=== PATIENT | female | born 1990 | race Caucasian/White ===

== ENCOUNTER → 2021-03-23 | Outpatient (CLI) | payer BC, MEDICAID ==
[~2021-03-23] MED LIST: ACHD5005 PO; CEPH500C PO; HYDR-707; Ibuprofen PO; MTR500T; NFR150C PO; PREN1TAB39 PO; VALA100033 PO
--- NOTE | 2021-03-23 12:28 | Diagnostic Imaging Report ---
INDICATION: Maternal tobacco use. TECHNIQUE: Multiple real-time grayscale images were obtained over the gravid uterus. COMPARISON: None FINDINGS: There is a single live fetus in cephalic presentation. heart rate was recorded at 155 bpm. Placenta is anterior. And hindfoot index is 12.2 cm. A biophysical profile was performed with a normal score of 8 out of 8. Biometrical measurements are as follows: Biparietal 9.45 cm, age 38 weeks 4 days. Head circumference 32.65 cm, age 37 weeks 1 days. Abdominal circumference 34.59 cm, age 38 weeks 4 days. Femur length 7.42 cm, age 38 weeks 0 days. Sonographic estimate age: 38 weeks 1 days. Sonographic estimated date of delivery: 04/05/2021. Estimated Weight: 3427 gm (+/- 501 gm). LMP percentile: 83%. heart rate: 155 beats per minute. number: 1 of 1. IMPRESSION: Single live IUP approximately 38 weeks gestational age with estimated date of confinement sonographically of 04/05/2021. No complicating features are identified. Normal biophysical profile score of 8 out of 8. Dictated by: Dictated on workstation # [id number]
== END ==
LOC: RAD 10:00
PROVIDERS: ATTEND Obstetrics & Gynecology
DX: O99.333 Smoking (tobacco) complicating pregnancy, third trimester (principal); Z3A.38 38 weeks gestation of pregnancy
CPT/HCPCS: 76805; 76819

== ENCOUNTER 2021-03-30 07:11 | Inpatient (IN) | payer MEDICAID ==
[~2021-03-30] VITALS: Ht 162.6 cm; Wt 102.1 kg
[2021-03-30] VITALS (79 sets, daily range): BP systolic 85–146; BP diastolic 46–91
[2021-03-30] MEDS ORDERED: OXYTOCIN PRE-MIX DRIP 500 ML IV SCH (07:45)
[2021-03-30] MEDS ORDERED: MINERAL OIL CONCENTRATE 99.9% 15 ML UDC TOP PRN (07:45)
[2021-03-30] MEDS ORDERED: fentaNYL 2 mcg/ml BUPIVA 0.125 100 ML ONE (08:06)
[2021-03-30] MEDS ORDERED: LACTATED RINGERS 1,000 ML IV ONE ×2 (08:06→08:45)
[2021-03-30 08:09] LABS: BASOPHILS % (AUTO) 0 % (0-10); EOSINOPHILS % (AUTO) 0 % (0-10); HEMATOCRIT 36 % (35-52); HEMOGLOBIN 11.8 g/dL (11.5-16.0); LYMPHOCYTES # (AUTO) 1.7 10^3/uL (1.0-4.0); LYMPHOCYTES % (AUTO) 16 % (12-44); MEAN CORPUSCULAR HEMOGLOBIN 28 pg (25-34); MEAN CORPUSCULAR HGB CONC 33 g/dL (32-36); MEAN CORPUSCULAR VOLUME 84 fL (80-99); MEAN PLATELET VOLUME 12.8 fL (9.0-12.2); MONOCYTES # (AUTO) 0.7 10^3/uL (0.0-1.0); MONOCYTES % (AUTO) 6 % (0-12); NEUTROPHILS # (AUTO) 7.9 10^3/uL (1.8-7.8); NEUTROPHILS % (AUTO) 76 % (42-75); PLATELET COUNT 166 10^3/uL (130-400); WHITE BLOOD COUNT 10.4 10^3/uL (4.3-11.0)
[2021-03-30] MEDS: D5 LR IV SOLUTION 1,000 ML IV SCH ×2 (08:35→16:41)
[2021-03-30] MEDS ORDERED: fentaNYL INJ 100 MCG/2 ML AMP ONE (08:44)
[2021-03-30] MEDS ORDERED: BUPIVACAINE 0.25% 30 ML (SENSORCAINE) VIAL ONE (08:44)
[2021-03-30] MEDS ORDERED: CATHETER FLUSH 10 ML SYR IV PRN (08:45)
[2021-03-30] MEDS ORDERED: ONDANSETRON 4 MG/2 ML (SDV) Z0FRAN IV PRN (08:45)
[2021-03-30] MEDS ORDERED: diphenhydrAMINE 50 MG/ML INJ (BENADRYL) IV PRN (08:45)
[2021-03-30] MEDS ORDERED: NALOXONE 0.4 MG/ML 1 ML (NARCAN) VIAL IV PRN ×2 (08:45→21:30)
[2021-03-30] MEDS ORDERED: FERR-84 PO (08:45)
[2021-03-30] MEDS: fentaNYL 2 mcg/ml BUPIVA 0.125 100 ML IV SCH ×2 (09:07→16:41)
[2021-03-30] MEDS ORDERED: CATHETER FLUSH 10 ML SYR IV SCH ×2 (14:00→22:00)
--- NOTE | 2021-03-30 15:27 | History & Physical-OB ---
OB - Chief Complaint & HPI Date/Time Date of Admission: Date of Admission: Mar 30, 2021 at 07:11 Date seen by a Provider: Mar 30, 2021 Time Seen by a Provider: 08:30 Chief Complaint/History OB-Reason for Admission/Chief: Induction of Labor Hx : 3 Hx Para: 2 Expected Date of Delivery: Apr 12, 2021 Gestational Age in Weeks: 38 Gestational Age in Days: 1 Other reason for admission: 30 Year old at 38 + week gestation complicated by Anti-S antibody. Testing has been wnl but [facility] recommended delivery at 38 weeks due to risk of anemia. also history of smoking with testing. PRevious vaginal delivery and then CS. Plans TOLAC and has signed appropriate consent forms. Admission Nurse Assessment Rev: Yes Allergies and Home Medications Allergies Coded Allergies: No Known Drug Allergies (Unverified , 11/13/08) Patient Home Medication List Home Medication List Reviewed: No Acetaminophen (Acetaminophen) 500 Mg Tablet, 1,000 MG PO Q8HR Prescribed by: SHELBY DUNAWAY on 04/01/21939 Ferrous Sulfate (Ferosul) 325 Mg Tablet, 325 MG PO DAILY Prescribed by: SHELBY DUNAWAY on 04/01/21939 Ibuprofen (Ibu) 600 Mg Tablet, 600 MG PO Q6HR Prescribed by: SHELBY DUNAWAY on 04/01/21939 Discontinued Medications Ferrous Sulfate (Iron) 325 Mg Tablet, 325 MG PO UD, (Reported) Entered as Reported by: YAHAIRA PINA on 03/30/21844 Last Action: Discontinued Hydrocodone Bit/Acetaminophen (Lortab 5 Mg Tablet) 1 Tab Tab, 1-2 TAB PO Q4H PRN for PAIN Prescribed by: SHELBY DUNAWAY on 10/14/13844 Last Action: Discontinued Polysaccharide Iron Complex (Niferex) 150 Mg Cap, 150 MG PO BID WITH MEALS Prescribed by: SHELBY DUNAWAY on 10/14/13844 Last Action: Discontinued Vits W-Ca,Fe,Fa(<1MG) () 1 Each Tablet, 1 EACH PO DAILY, (Reported) Entered as Reported by: NAVJOT BRADY on 10/05/10 9894 Last Action: Discontinued Valacyclovir Hcl (Valtrex) 1,000 Mg Tablet, 1,000 MG PO DAILY, (Reported) Entered as Reported by: NAVJOT BRADY on 10/05/10 9479 Last Action: Discontinued [Ibuprofen] 600 MG TAB, 600 MG PO Q6H PRN for PAIN Discontinued Reason: No Longer Taking Prescribed by: SHELBY DUNAWAY on 10/14/13 8053 Last Action: Discontinued OB - History Hx of Present Ultrasounds: Normal mid trimester US Obstetrical Complications: Other (abnormal antibodies) Information Induced Hypertension: No Maternal Gestational Diabetes: No Hemorrhage: No Obstetrical History Hx : 3 Hx Para: 2 Hx # Term Pregnancies: 2 Hx # Pregnancies: 0 Number of Living Children: 2 Hx Termination: No Hx Multiple Gestation: No Hx Stillbirth: No Hx Complication: No Hx Induced Hypertens: No Hx Maternal Gestational Diabet: No Delivery History Hx Dystocia: No Hx Large For Gestational Age I: No Hx Small for Gestational Age I: No Hx Section: Yes Hx Vaginal Delivery Post C-Sec: No Hx Blood Disorders: No Adverse Rxn to Tranfusion: No Patient Past Medical History smoking Social History/Family History Alcohol Use: Denies Use Smoking Cessation: Current every day smoker Immunizations Influenza Vaccine Up-to-Date: Yes; Up-to-Date Hepatitis A: No Hepatitis B: No Tetanus Booster (TDap): Less than 5yrs Rubella: immune RPR/VDRL: Negative GBS Status: Negative HBsAG: Negative OB - Admission Exam Physical Exam Vitals: Vital Signs 03/30/21 03/30/21 09:06 14:30 Temp 36.3 Pulse 75 Resp 18 B/P (MAP) 98/55 (69) Pulse Ox 97 O2 Delivery Room Air HEENT: NCAT Heart: Rhythm Normal Lungs: Clear Abdomen: Gravid Extremities: Normal Reflexes: Normal Cervical Dilatation: 3cm Effacement: 50% Station: -2 Membranes: Intact Heart Rate: 140's Accelerations: Accelerations Present Decelerations: No Decelerations Short Term Variability: Present Beater Engineer Variability: Average (6-25) Contractions on Admission: 6-10 Minutes Apart Labs Laboratory Tests Test 03/30/21 07:55 Range/Units White Blood Count 10.4 4.3-11.0 10^3/uL Red Blood Count 4.26 3.80-5.11 10^6/uL Hemoglobin 11.8 11.5-16.0 g/dL Hematocrit 36 35-52 % Mean Corpuscular Volume 84 80-99 fL Mean Corpuscular Hemoglobin 28 25-34 pg Mean Corpuscular Hemoglobin Concent 33 32-36 g/dL Red Cell Distribution Width 14.7 H 10.0-14.5 % Platelet Count 166 130-400 10^3/uL Mean Platelet Volume 12.8 H 9.0-12.2 fL Immature Granulocyte % (Auto) 1 % Neutrophils (%) (Auto) 76 H 42-75 % Lymphocytes (%) (Auto) 16 12-44 % Monocytes (%) (Auto) 6 0-12 % Eosinophils (%) (Auto) 0 0-10 % Basophils (%) (Auto) 0 0-10 % Neutrophils # (Auto) 7.9 H 1.8-7.8 10^3/uL Lymphocytes # (Auto) 1.7 1.0-4.0 10^3/uL Monocytes # (Auto) 0.7 0.0-1.0 10^3/uL Eosinophils # (Auto) 0.0 0.0-0.3 10^3/uL Basophils # (Auto) 0.0 0.0-0.1 10^3/uL Immature Granulocyte # (Auto) 0.1 0.0-0.1 10^3/uL OB - Assessment/Plan/Diagnosis Assessment Assessment: induction of labor, other (history of CS for TOLAC) Admission Dx 38 week gestation abnormal antibodies previous section Admission Status: Inpatient Order (span 2 midnights) Reason for Inpatient Admission: labor Plan Induction Method: AROM Other Plan Plan TOLAC AROM and pitocin. epidural Anticipate SHELBY LEE DO Mar 30, 2021 15:27
[2021-03-30] MEDS ORDERED: LIDOCAINE/EPI 2% 1:200,00 (XYLOCAINE) 10 ML VIAL ONE (20:06)
[2021-03-30] MEDS ORDERED: LIDOCAINE/EPI 2% 1:200,00 (XYLOCAINE) 10 ML VIAL INJ ONE (20:15)
[2021-03-30] MEDS: OXYTOCIN PRE-MIX DRIP 500 ML IV SCH ×2 (21:10→21:33)
[2021-03-30] MEDS ORDERED: CARBOPROST (HEMABATE) 250 MCG/ML AMP IM ONE ×2 (21:14→21:30)
--- NOTE | 2021-03-30 21:27 | OB Labor & Delivery Record ---
Vag Delivery Note Vag Delivery Note Date of Delivery: 03/30/21 Preoperative Diagnosis: Rabia Garcia is a 30 /Para 3 /2 , Gestational Age38 4/7 weeks for induction due to abnormal antibodies, previous section Postoperative Diagnosis: Same Surgeon: SHELBY DUNAWAY Anesthesia: epidural Delivery Type: Findings: Viable female , apgars 9/9, weight 7#5ounces Lacerations: vaginal abrasions Intact placenta with 3 vessel cord. No nuchal cord, body cord or shoulder dystocia Hemabate 250 mch Estimated Blood Loss: 500 ml Complications: None Condition: Stable Description of Procedure: The patient is a 30 year old female who presented for induction of labor. She was admitted and informed consent was obtained. Her labor course was remarkable for epidural placement, AROM and oxytocin augmentation. She progressed to complete dilatation and began to push. She was then set up for delivery. The infant's head was delivered atraumatically in the LINDA position. The shoulders and remainder of the infant's body were then delivered without difficulty. Upon delivery, the head was held below the level of the perineum and the mouth and nares were bulb suctioned. The cord was doubly clamped and cut and the was handed off to the pediatric staff. After 30 minutes the placenta had not yet delivered, so it was delivered manually.She had extended bleeding. Vigorous fundal massage was performed and the fundus was found to be firm. IV oxytocin was given. Hemabate 250 mcg given x 1. Examination of the vagina and perineum revealed no laceration. Following the delivery, sponge, instrument and needle counts were correct. Mom and baby were both in stable condition in the labor suite. Vitals - Labs Vital Signs - I&O Vital Signs Date Time Temp Pulse Resp B/P (MAP) Pulse Ox O2 Delivery O2 Flow Rate FiO2 03/30/21 19:42 37.5 114 18 121/71 (88) 100 03/30/21 19:00 100 18 130/67 (88) 100 Room Air 03/30/21 18:50 111 18 130/70 (90) 100 Room Air 03/30/21 18:45 102 18 100 Room Air 03/30/21 18:40 103 18 100 Room Air 03/30/21 18:30 89 18 119/58 (78) 100 Non Rebreather 15.00 03/30/21 18:15 86 18 126/58 (80) 100 Non Rebreather 15.00 03/30/21 18:00 87 18 120/59 (79) 100 Non Rebreather 15.00 03/30/21 17:50 84 18 128/59 (82) 100 Non Rebreather 15.00 03/30/21 17:40 91 18 127/60 (82) 100 Non Rebreather 15.00 03/30/21 17:30 88 18 85/62 (70) 100 Non Rebreather 15.00 03/30/21 17:27 95 118/77 (91) 03/30/21 17:24 94 18 114/64 (81) 100 Non Rebreather 15.00 03/30/21 17:21 78 18 111/59 (76) 100 Non Rebreather 15.00 03/30/21 17:18 78 18 126/79 (95) 100 Non Rebreather 15.00 03/30/21 17:15 80 18 116/59 (78) 100 Non Rebreather 15.00 03/30/21 17:12 88 18 120/66 (84) 03/30/21 17:09 95 18 123/70 (87) 100 Non Rebreather 15.00 03/30/21 17:06 97 18 122/70 (87) 100 Room Air 03/30/21 17:03 37.0 98 18 123/66 (85) Room Air 03/30/21 17:00 93 18 131/68 (89) 99 Room Air 03/30/21 16:57 91 18 100 Room Air 03/30/21 16:56 126 18 133/83 (100) 100 Room Air 03/30/21 16:53 97 18 109/70 (83) 100 Room Air 03/30/21 16:50 87 18 115/71 (86) 100 Room Air 03/30/21 16:48 90 18 116/70 (85) Room Air 03/30/21 16:45 87 18 118/68 (85) 99 Room Air 03/30/21 16:40 86 18 100 Room Air 03/30/21 16:35 101 18 100 Room Air 03/30/21 16:30 90 18 113/71 (85) 100 Room Air 03/30/21 16:25 86 18 100 Room Air 03/30/21 16:20 96 18 100 Room Air 03/30/21 16:15 93 18 126/76 (93) 99 Room Air 03/30/21 16:05 91 18 100 Room Air 03/30/21 16:00 88 18 124/69 (87) 99 Room Air 03/30/21 15:55 89 18 100 Room Air 03/30/21 15:50 84 18 100 Room Air 03/30/21 15:45 85 18 132/79 (96) 99 Room Air 03/30/21 15:40 78 18 99 Room Air 03/30/21 15:35 78 18 99 Room Air 03/30/21 15:30 85 18 125/74 (91) 99 Room Air 03/30/21 15:15 78 18 111/67 (82) 99 Room Air 03/30/21 15:00 73 18 110/59 (76) 98 Room Air 03/30/21 14:45 68 18 107/56 (73) 98 Room Air 03/30/21 14:30 75 18 98/55 (69) 97 Room Air 03/30/21 14:25 68 18 97 Room Air 03/30/21 14:20 74 18 97 Room Air 03/30/21 14:15 74 18 107/57 (74) 98 Room Air 03/30/21 14:10 75 18 98 Room Air 03/30/21 14:05 75 18 98 Room Air 03/30/21 14:00 85 18 108/59 (75) 99 Room Air 03/30/21 13:55 73 18 99 Room Air 03/30/21 13:50 77 18 99 Room Air 03/30/21 13:45 75 18 114/55 (74) 99 Room Air 03/30/21 13:40 78 18 98 Room Air 03/30/21 13:30 66 18 122/72 (89) 99 Room Air 03/30/21 13:25 64 18 99 Room Air 03/30/21 13:20 69 18 98 Room Air 03/30/21 13:15 74 18 120/63 (82) 99 Room Air 03/30/21 13:10 75 18 97 Room Air 03/30/21 13:05 62 18 98 Room Air 03/30/21 13:00 59 18 119/64 (82) 98 Room Air 03/30/21 12:55 66 18 97 Room Air 03/30/21 12:50 72 18 98 Room Air 03/30/21 12:45 73 18 115/59 (77) 97 03/30/21 12:40 72 18 98 Room Air 03/30/21 12:30 69 18 123/59 (80) 98 Room Air 03/30/21 12:25 67 18 97 Room Air 03/30/21 12:20 68 18 98 Room Air 03/30/21 12:15 72 18 120/63 (82) 99 Room Air 03/30/21 12:10 68 18 98 Room Air 03/30/21 12:05 66 18 99 Room Air 03/30/21 12:00 68 18 146/75 (98) 98 Room Air 03/30/21 11:55 72 18 98 Room Air 03/30/21 11:50 70 18 99 Room Air 03/30/21 11:45 77 18 123/76 (92) 99 Room Air 03/30/21 11:40 72 18 99 Room Air 03/30/21 11:35 75 18 99 Room Air 03/30/21 11:30 79 18 117/73 (88) 99 Room Air 03/30/21 11:25 78 18 99 Room Air 03/30/21 11:20 71 18 99 Room Air 03/30/21 11:15 72 18 121/76 (91) 99 Room Air 03/30/21 11:10 79 18 98 Room Air 03/30/21 11:05 83 18 99 Room Air 03/30/21 11:00 80 18 115/75 (88) 99 Room Air 03/30/21 10:55 71 18 99 Room Air 03/30/21 10:50 72 18 99 Room Air 03/30/21 10:45 80 18 117/77 (90) 99 Room Air 03/30/21 10:40 72 18 97 Room Air 03/30/21 10:35 76 18 97 Room Air 03/30/21 10:30 70 18 113/76 (88) 98 Room Air 03/30/21 10:25 78 18 98 Room Air 03/30/21 10:20 73 18 99 Room Air 03/30/21 10:15 80 18 113/76 (88) 99 Room Air 03/30/21 10:10 73 18 99 Room Air 03/30/21 10:05 74 18 98 Room Air 03/30/21 10:00 64 18 119/76 (90) 99 03/30/21 09:55 67 18 98 Room Air 03/30/21 09:50 73 18 124/58 (80) 98 Room Air 03/30/21 09:45 86 18 98 Room Air 03/30/21 09:40 76 18 98 Room Air 03/30/21 09:35 77 18 99 Room Air 03/30/21 09:29 88 18 131/73 (92) 99 Room Air 03/30/21 09:26 82 18 133/71 (91) 98 Room Air 03/30/21 09:23 70 18 119/66 (83) 03/30/21 09:20 80 18 119/72 (88) 99 03/30/21 09:16 75 18 112/70 (84) 03/30/21 09:12 79 18 120/71 (87) 99 Room Air 03/30/21 09:09 80 18 127/65 (85) 100 Room Air 03/30/21 09:06 36.3 69 18 119/66 (83) 100 Room Air 03/30/21 09:03 83 18 112/61 (78) 99 Room Air 03/30/21 09:01 77 18 107/55 (72) 99 Room Air 03/30/21 08:58 73 18 88/46 (60) 99 Room Air 03/30/21 08:55 81 18 108/53 (71) 99 Room Air 03/30/21 08:51 86 18 131/76 (94) 100 Room Air 03/30/21 08:49 90 18 131/76 (94) 99 Room Air 03/30/21 07:48 36.8 93 18 127/79 (95) Labs Laboratory Tests 03/30/21 07:55: White Blood Count 10.4, Red Blood Count 4.26, Hemoglobin 11.8, Hematocrit 36, Mean Corpuscular Volume 84, Mean Corpuscular Hemoglobin 28, Mean Corpuscular Hemoglobin Concent 33, Red Cell Distribution Width 14.7H, Platelet Count 166, Mean Platelet Volume 12.8H, Immature Granulocyte % (Auto) 1, Neutrophils (%) (Auto) 76H, Lymphocytes (%) (Auto) 16, Monocytes (%) (Auto) 6, Eosinophils (%) (Auto) 0, Basophils (%) (Auto) 0, Neutrophils # (Auto) 7.9H, Lymphocytes # (Auto) 1.7, Monocytes # (Auto) 0.7, Eosinophils # (Auto) 0.0, Basophils # (Auto) 0.0, Immature Granulocyte # (Auto) 0.1 SHELBY DUNAWAY DO Mar 30, 2021 21:27
[2021-03-30] MEDS ORDERED: MEASLES,MUMPS,RUBELLA 1 EA INJ SQ ONE (21:30)
[2021-03-30] MEDS ORDERED: TETANUS,DIPTH,PERTUSS P/F (BOOSTRIX) 0.5 ML VIAL IM ONE (21:30)
[2021-03-30] MEDS ORDERED: BENZOCAINE/MENTHOL (DERMOPLAST) 56 ML CAN TP PRN (21:30)
[2021-03-30] MEDS ORDERED: WITCH HAZEL(TUCKS) 40 EA JAR TOP PRN (21:30)
[2021-03-30] MEDS ORDERED: DOCUSATE SODIUM 100 MG (COLACE) CAP PO ONE (23:53)
[2021-03-30] MEDS: ACETAMINOPHEN 500 MG TAB (TYLENOL) PO SCH (23:55)
[2021-03-30] MEDS: IBUPROFEN 600 MG (MOTRIN) TAB PO SCH (23:55)
[2021-03-30] MEDS: DOCUSATE SODIUM 100 MG (COLACE) CAP PO SCH (23:55)
[2021-03-31] MEDS: IBUPROFEN 600 MG (MOTRIN) TAB PO SCH ×3 (05:54→18:27)
[2021-03-31 06:10] VITALS: BP 123/93
[2021-03-31 07:47] LABS: BASOPHILS % (AUTO) 0 % (0-10); EOSINOPHILS % (AUTO) 0 % (0-10); MONOCYTES % (AUTO) 6 % (0-12)
[2021-03-31 07:49] LABS: HEMATOCRIT 30 % (35-52); HEMOGLOBIN 9.7 g/dL (11.5-16.0); LYMPHOCYTES % (AUTO) 10 % (12-44); MEAN CORPUSCULAR HEMOGLOBIN 28 pg (25-34); MEAN CORPUSCULAR HGB CONC 33 g/dL (32-36); MEAN CORPUSCULAR VOLUME 86 fL (80-99); MEAN PLATELET VOLUME 12.7 fL (9.0-12.2); MONOCYTES # (AUTO) 1.2 10^3/uL (0.0-1.0); NEUTROPHILS # (AUTO) 17.2 10^3/uL (1.8-7.8); NEUTROPHILS % (AUTO) 84 % (42-75); PLATELET COUNT 154 10^3/uL (130-400); WHITE BLOOD COUNT 20.6 10^3/uL (4.3-11.0)
[2021-03-31] MEDS: DOCUSATE SODIUM 100 MG (COLACE) CAP PO SCH ×2 (08:36→20:55)
[2021-03-31] MEDS: ACETAMINOPHEN 500 MG TAB (TYLENOL) PO SCH ×2 (08:36→16:54)
[2021-03-31] MEDS: PRENATAL VITAMIN 1 EA TAB PO SCH (08:36)
[2021-03-31] MEDS: FERROUS SULF 325 MG (IRON) TAB PO SCH (08:36)
[2021-03-31 08:44] VITALS: BP 119/69
[2021-03-31] MEDS ORDERED: MEASLES,MUMPS,RUBELLA 1 EA INJ ONE (09:48)
--- NOTE | 2021-03-31 09:52 | Anesthesia-Regional Post-Op ---
Regional Patient Condition Mental Status: Alert, Oriented x3 Circulation: Same as Pre-Op Headache: Absent Sensation: Full Recovery Motor Block: Absent Post Op Complications Complications None Follow Up Care/Instructions Patient Instructions None needed. Anesthesia/Patient Condition Patient is doing well, no complaints, stable vital signs, no apparent adverse anesthesia problems. No complications reported per nursing. SAMEER MEYER CRNA Mar 31, 2021 09:52
--- NOTE | 2021-03-31 12:33 | Progress Note ---
VERONICA RIOS 03/31/21 1233: Subjective Date Seen by a Provider: Mar 31, 2021 Time Seen by a Provider: 12:30 Subjective/Events-last exam 30yo F presents s/p vaginal delivery day #1. Reports of indigestion. Ambulating, voiding well. Regular diet. Breast feeding. Normal lochia. Denies any fever, chi lls, nausea, vomiting, or diarrhea. Objective Exam Last Set of Vital Signs Vital Signs Date Time Temp Pulse Resp B/P (MAP) Pulse Ox O2 Delivery O2 Flow Rate FiO2 03/31/21 08:44 36.5 83 16 119/69 (86) 98 Room Air 03/30/21 18:30 15.00 Capillary Refill : I&O Intake and Output 03/31/21 00:00 Intake Total 2500 ml Balance 2500 ml Intake IV Total 2500 ml Daily Weight Change No General: Alert, Oriented X3, Cooperative HEENT: Atraumatic, EOMI Neck: Supple Lungs: Clear to Auscultation, Normal Air Movement Heart: Regular Rate Abdomen: Soft, No Tenderness Extremities: No Tenderness/Swelling Skin: No Rashes Neuro: Normal Speech Psych/Mental Status: Mental Status NL, Mood NL Results Lab Laboratory Tests 03/31/21 07:38: White Blood Count 20.6H, Red Blood Count 3.48L, Hemoglobin 9.7L, Hematocrit 30L, Mean Corpuscular Volume 86, Mean Corpuscular Hemoglobin 28, Mean Corpuscular Hemoglobin Concent 33, Red Cell Distribution Width 15.0H, Platelet Count 154, Mean Platelet Volume 12.7H, Immature Granulocyte % (Auto) 1, Neutrophils (%) (Auto) 84H, Lymphocytes (%) (Auto) 10L, Monocytes (%) (Auto) 6, Eosinophils (%) (Auto) 0, Basophils (%) (Auto) 0, Neutrophils # (Auto) 17.2H, Lymphocytes # (Auto) 2.0, Monocytes # (Auto) 1.2H, Eosinophils # (Auto) 0.0, Basophils # (Auto) 0.0, Immature Granulocyte # (Auto) 0.1, Percent Immature Platelet Fraction 14.8H Assessment/Plan Assessment/Plan Assess & Plan/Chief Complaint s/p vaginal delivery day #1 03/31/2021: Routine post care Encourage ambulation Encourage breast feeding Ferrous sulfate supplementation Possible discharge tomorrow SHELBY DUNAWAY DO 04/01/21 0936: Assessment/Plan Assessment/Plan Assess & Plan/Chief Complaint PPD 1 s/p acute blood loss anemia - on iron Plan DC tomorrow. Supervisory-Addendum Brief Verification & Attestation Participated in pt care: history Personally performed: supervision of care Care discussed with: Medical Student Procedures: n/a I have seen and examined patient and agree with assessment. VERONICA RIOS Mar 31, 2021 12:33 SHELBY DUNAWAY DO Apr 01, 2021 09:36
[2021-03-31 12:44] VITALS: BP 124/61
[2021-03-31] MEDS ORDERED: PANTOPRAZOLE 20 MG TABLET (PROTONIX) PO NR (13:30)
[2021-03-31 16:55] VITALS: BP 119/76
[2021-04-01 00:30] VITALS: BP 117/58
[2021-04-01] MEDS: IBUPROFEN 600 MG (MOTRIN) TAB PO SCH ×2 (00:33→06:02)
[2021-04-01] MEDS: ACETAMINOPHEN 500 MG TAB (TYLENOL) PO SCH ×2 (00:33→08:05)
[2021-04-01] MEDS: PRENATAL VITAMIN 1 EA TAB PO SCH (06:02)
[2021-04-01 06:12] VITALS: BP 115/58
[2021-04-01] MEDS: FERROUS SULF 325 MG (IRON) TAB PO SCH (08:05)
[2021-04-01] MEDS: DOCUSATE SODIUM 100 MG (COLACE) CAP PO SCH (08:06)
--- NOTE | 2021-04-01 08:58 | Progress Note ---
VERONICA RIOS 04/01/21 0858: Subjective Date Seen by a Provider: Apr 01, 2021 Time Seen by a Provider: 08:56 Subjective/Events-last exam 30yo F presents s/p day #2. Patient is without complaints. Denies anymore symptoms of indigestion. Ambulating, voiding well. Regular diet. Normal lochia. Breast feeding. Denies any fever, chills, nausea, vomiting, or diarrhea. Objective Exam Last Set of Vital Signs Vital Signs Date Time Temp Pulse Resp B/P (MAP) Pulse Ox O2 Delivery O2 Flow Rate FiO2 04/01/21 06:12 36.6 86 18 115/58 (77) 98 Room Air 03/30/21 18:30 15.00 Capillary Refill : General: Alert, Oriented X3, Cooperative HEENT: EOMI Neck: Supple Lungs: Clear to Auscultation Heart: Regular Rate Abdomen: Soft, No Tenderness Extremities: No Tenderness/Swelling Skin: No Rashes Neuro: Normal Speech Psych/Mental Status: Mental Status NL, Mood NL Assessment/Plan Assessment/Plan Assess & Plan/Chief Complaint s/p day #2 04/01/2021: Routine post care Encourage ambulation Encourage breast feeding Ferrous sulfate supplementation Possible discharge today Follow up in 2 and 6 weeks to clinic or sooner if symptoms worsen SHELBY DUNAWAY DO 04/01/21 0939: Assessment/Plan Assessment/Plan Assess & Plan/Chief Complaint POD 2 s/p Acute blood loss anemia - stable Supervisory-Addendum Brief Verification & Attestation Participated in pt care: history Personally performed: supervision of care Care discussed with: Medical Student Procedures: n/a, supervised I have seen patient and agree with assessment. VERONICA RIOS Apr 01, 2021 08:58 SHELBY DUNAWAY DO Apr 01, 2021 09:39
[2021-04-01] MEDS ORDERED: PANTOPRAZOLE 20 MG TABLET (PROTONIX) PO SCH (09:00)
[2021-04-01] MEDS ORDERED: FERR325T24 PO (09:40)
[2021-04-01] MEDS ORDERED: IBUP-844 PO (09:40)
[2021-04-01] MEDS ORDERED: ACET-93 PO (09:40)
--- NOTE | 2021-04-01 09:41 | Discharge Inst-Women's Service ---
Discharge Inst-Women's Serv Depart Medication/Instructions New, Converted or Re-Newed RX: Transmitted to Pharmacy Final Diagnosis history of abnormal antibody induction smoking history vaginal delivery acute blood loss anemia/post hemorrhage Problems Reviewed?: Yes Consults/Follow Up Additional Follow Up: Yes (6 week pp exam) Activity Activity: Activity as Tolerated Driving Instructions: You May Drive NO SMOKING: NO SMOKING Nothing Inside Vagina: No Douching, No Sand Pillow, No Tampons Diet Discharge Diet: No Restrictions Symptoms to Report to : Swelling Increased, Bleeding Excessive, Pain Increased, Fever Over 101 Degrees F, Vaginal Bleeding Increase, Cramps in Feet or Legs, Vaginal Discharge Foul For Any Problems or Questions: Contact Your Physician SHELBY DUNAWAY DO Apr 01, 2021 09:41
--- NOTE | 2021-04-01 09:42 | Short Stay Summary ---
Discharge Summary Hospital Course Hospital Course Date of Admission: Mar 30, 2021 at 07:11 Admission Diagnosis : Family Physician/Provider: Date of Discharge: 04/01/21 Discharge Diagnosis: [ ] Hospital Course: [ ] Labs and Pending Lab Test: Home Meds Active Acetaminophen 500 Mg Tablet 1,000 Mg PO Q8HR Ibu (Ibuprofen) 600 Mg Tablet 600 Mg PO Q6HR Ferosul (Ferrous Sulfate) 325 Mg Tablet 325 Mg PO DAILY Discharge Instructions Discharge Diet: No Restrictions Discharge Physical Examination Allergies: Coded Allergies: No Known Drug Allergies (Unverified , 11/13/08) Discharge Summary Date of Admission Mar 30, 2021 at 07:11 Date of Discharge Discharge Date: Apr 01, 2021 SHELBY DUNAWAY DO Apr 01, 2021 09:42
[2021-04-01 10:22] VITALS: BP 115/78
[2021-04-01 10:30] VITALS: BP 115/78
== END 2021-04-01 10:45 | disposition home or self-care (01) | DRG 806 ==
LOC: LDRP 07:11
PROVIDERS: ADMIT Obstetrics & Gynecology; ATTEND Obstetrics & Gynecology
PROC: 10E0XZZ Delivery of Products of Conception, External Approach (ICD-10-PCS; principal; 2021-03-30)
PROC: 10907ZC Drainage of Amniotic Fluid, Therapeutic from Products of Conception, Via Natural or Artificial Opening (ICD-10-PCS; 2021-03-30)
PROC: 3E033VJ Introduction of Other Hormone into Peripheral Vein, Percutaneous Approach (ICD-10-PCS; 2021-03-30)
DX: O34.211 Maternal care for low transverse scar from previous cesarean delivery (principal); D62 Acute posthemorrhagic anemia; Z37.0 Single live birth; O72.1 Other immediate postpartum hemorrhage; Z3A.38 38 weeks gestation of pregnancy; O71.89 Other specified obstetric trauma; O90.81 Anemia of the puerperium; O99.334 Smoking (tobacco) complicating childbirth; F17.210 Nicotine dependence, cigarettes, uncomplicated
CPT/HCPCS: 36415; 85025; 86850; 86900; 86901; 90707